=== PATIENT | male | born 1990 | race Caucasian/White ===

== ENCOUNTER 2017-04-04 09:10 | Inpatient (IN) | payer MEDICAID, OTHER ==
[~2017-04-04] VITALS: Ht 185.4 cm; Wt 64.0 kg
[~2017-04-04 09:10] MED LIST: LAMO25 PO; LEVE500T53 PO; QUET200T29 PO
[2017-04-04] MEDS ORDERED: FLUO-191 PO (09:21)
[2017-04-04] MEDS ORDERED: QUET50XR PO (09:21)
[2017-04-04] MEDS ORDERED: QUEtiapine FUMARATE 25 MG TABLET PO ONE (09:30)
[2017-04-04] MEDS ORDERED: LORazepam 1 MG TABLET PO ONE (09:30)
[2017-04-04 09:31] LABS: BASOPHILS % (AUTO) 0.5 % (0.0-2.0); HEMATOCRIT 42.6 % (41-53); HEMOGLOBIN 14.5 g/dL (13.5-17.5); LYMPHOCYTES # (AUTO) 1.4 K/uL (1.0-4.8); MEAN CORPUSCULAR HEMOGLOBIN 31.6 pg (26.0-34.0); MEAN CORPUSCULAR HGB CONC 34.1 G/dL (31.0-37.0); MEAN CORPUSCULAR VOLUME 93 fL (80-100); MONOCYTES # (AUTO) 0.8 K/uL (0.1-1.0); MONOCYTES % (AUTO) 13.3 % (2.0-9.0); NEUTROPHILS # (AUTO) 3.4 K/uL (1.8-7.7); NEUTROPHILS % (AUTO) 60.2 % (40.0-70.0); PLATELET COUNT (AUTO) 243 K/uL (150-450); RED CELL DISTRIBUTION WIDTH 13.6 % (11.5-14.5); WHITE BLOOD COUNT (AUTO) 5.7 K/uL (4.5-11.0)
[2017-04-04 09:37] LABS: ANION GAP 6 mmol/L (8-16); CALCIUM, TOTAL 9.2 mg/dL (8.8-10.5); CARBON DIOXIDE 30 mmol/L (22-29); CHLORIDE 106 mmol/L (98-107); CREATININE 0.73 mg/dL (0.60-1.30); GLOMERULAR FILTR. RATE CALC > 60 mL/min (>60); POTASSIUM 4.2 mmol/L (3.5-5.1); SODIUM SERUM 142 mmol/L (136-145); UREA NITROGEN, BLOOD 24 mg/dL (7-18)
[2017-04-04 09:43] LABS: ALANINE AMINOTRANSFERASE 181 U/L (12-78); ALBUMIN 3.8 g/dL (3.4-5.0); ASPARTATE AMINOTRANSFERASE 70 U/L (15-37); BILIRUBIN,TOTAL 0.7 mg/dL (0.1-1.0); TOTAL PROTEIN, SERUM 7.2 g/dL (6.4-8.2)
[2017-04-04] MEDS ORDERED: ZOLPIDEM TARTRATE 10 MG TABLET PO PRN (10:00)
[2017-04-05 00:05] VITALS: BP 104/59
[2017-04-05] MEDS ORDERED: PNEUMOCOCCAL VACCINE POLYVALENT 0.5 ML VIAL [PPSV23] IM ONE (02:15)
[2017-04-05] MEDS: LORazepam 2 MG TABLET PO PRN ×3 (05:20→20:59)
[2017-04-05 08:25] VITALS: BP 112/66
[2017-04-05] MEDS: HALOPERIDOL 5 MG TABLET PO PRN (09:00)
[2017-04-05] MEDS: FLUoxetine HCL 20 MG CAPSULE PO SCH (09:14)
[2017-04-05 16:00] VITALS: BP 114/67
[2017-04-05] MEDS ORDERED: IBUPROFEN 400 MG TABLET PO PRN (17:30)
[2017-04-05] MEDS ORDERED: ACETAMINOPHEN 325 MG TABLET PO PRN (17:30)
[2017-04-05] MEDS: QUEtiapine FUMARATE 200 MG TABLET PO SCH (20:59)
[2017-04-06 06:27] VITALS: BP 115/63
[2017-04-06] MEDS: LevETIRAcetam 500 MG TABLET PO SCH ×2 (08:30→16:32)
[2017-04-06] MEDS: FLUoxetine HCL 20 MG CAPSULE PO SCH (08:30)
[2017-04-06 08:49] LABS: CHOL/HDL RATIO 3.1 (4.2-7.3); THYROID STIMULATING HORMONE 0.37 uIU/mL (0.36-3.74)
[2017-04-06 09:41] VITALS: BP 97/52
[2017-04-06] MEDS: LORazepam 2 MG TABLET PO PRN (13:49)
[2017-04-06 16:27] VITALS: BP 129/68
[2017-04-06] MEDS: QUEtiapine FUMARATE 200 MG TABLET PO SCH (20:32)
[2017-04-07 00:10] LABS: LYMPHS % FOR CD4 COUNT 25 % (Not Estab.); LYMPHS ABS FOR CD4 COUNT 1.4 x10E3/uL (0.7-3.1); WBC FOR CD4 COUNT 5.7 x10E3/uL (3.4-10.8)
[2017-04-07 00:27] VITALS: BP 115/57
[2017-04-07 08:23] VITALS: BP 104/58
[2017-04-07] MEDS: LevETIRAcetam 500 MG TABLET PO SCH ×2 (08:39→16:47)
[2017-04-07] MEDS: FLUoxetine HCL 20 MG CAPSULE PO SCH (08:39)
[2017-04-07] MEDS: LORazepam 2 MG TABLET PO PRN ×2 (08:39→16:47)
[2017-04-07 15:09] LABS: ABSOLUTE CD4 COUNT 500 /uL (359-1519); PERCENT CD4 CELLS 35.7 % (30.8-58.5)
[2017-04-07 16:00] VITALS: BP 112/68
[2017-04-07] MEDS: HALOPERIDOL 5 MG TABLET PO PRN (16:47)
[2017-04-07] MEDS: QUEtiapine FUMARATE 200 MG TABLET PO SCH (21:14)
[2017-04-08 06:40] VITALS: BP 103/68
[2017-04-08] MEDS: FLUoxetine HCL 20 MG CAPSULE PO SCH (08:32)
[2017-04-08] MEDS: LevETIRAcetam 500 MG TABLET PO SCH (08:32)
[2017-04-08] MEDS: LORazepam 2 MG TABLET PO PRN (08:32)
[2017-04-08 09:13] VITALS: BP 106/48
[2017-04-08] MEDS ORDERED: LEVE500T8 PO (11:19)
== END 2017-04-08 13:00 | disposition home or self-care (01) | DRG 750 ==
LOC: EMS 09:13 → B3A 19:56
PROVIDERS: ADMIT Psychiatry & Neurology Psychiatry; ATTEND Psychiatry & Neurology Child & Adolescent Psychiatry
DX: F25.1 Schizoaffective disorder, depressive type (principal); R45.851 Suicidal ideations; G40.909 Epilepsy, unspecified, not intractable, without status epilepticus; J45.909 Unspecified asthma, uncomplicated; F15.10 Other stimulant abuse, uncomplicated; F14.10 Cocaine abuse, uncomplicated; F11.10 Opioid abuse, uncomplicated; Z59.0 Homelessness; Z79.899 Other long term (current) drug therapy; Z91.5 Personal history of self-harm
CPT/HCPCS: 84443; 86361; 90471; 99285; G0480